=== PATIENT | female | born 1990 | race Caucasian/White ===

== ENCOUNTER → 2017-05-05 | Outpatient (CLI) | payer BC ==
[~2017-05-05] MED LIST: ALBU90OI INH; BACITO TP; CETI10 PO; CRUTCH4 USE; CYCL10 PO; FEXO60 PO; SPIR25 PO
[2017-05-06 13:51] LABS: Source VAG/CERVIX
== END | disposition home or self-care (01) ==
LOC: LAB 12:02
PROVIDERS: Obstetrics & Gynecology
DX: Z01.419 Encounter for gynecological examination (general) (routine) without abnormal findings (principal)
CPT/HCPCS: G0123

== ENCOUNTER 2019-05-07 19:44 | Inpatient (IN) | payer BC ==
[~2019-05-07] VITALS: Ht 162.6 cm; Wt 115.0 kg
[2019-05-07 20:19] LABS: Source, Urine Clean Catch
[2019-05-07 20:23] LABS: Appearance, Urine Clear (Clear); BASOPHILS ABSOLUTE AUTO 0.02 K/mm3 (0.00-0.23); BASOPHILS PERCENT AUTO 0 % (0-2); Blood, Urine 4+ (Neg); Color, Urine Amber (P-Yellow); EOSINOPHILS ABSOLUTE AUTO 0.11 K/mm3 (0.00-0.68); EOSINOPHILS PERCENT AUTO 1 % (0-6); Glucose Qualitative, Urine Neg (Neg); Hematocrit 47.3 % (33.0-51.0); Hemoglobin 15.1 g/dL (11.5-16.0); IMMATURE GRAN ABSOLUTE AUTO 0.04 K/mm3 (0.00-0.10); IMMATURE GRAN PERCENT AUTO 0 % (0-1); Ketones, Urine 1+ (Neg); LYMPHOCYTES ABSOLUTE AUTO 1.75 K/mm3 (0.84-5.20); LYMPHOCYTES PERCENT AUTO 17 % (21-46); Leukocyte Esterase, Urine 1+ (Neg); MONOCYTES ABSOLUTE AUTO 0.93 K/mm3 (0.16-1.47); MONOCYTES PERCENT AUTO 9 % (4-13); Mean Corpuscular HGB 28.8 pg (26.0-34.0); Mean Corpuscular HGB Conc 31.9 g/dL (31.5-36.5); Mean Corpuscular Volume 90 fL (80-100); Mean Platelet Volume 9.3 fL (9.1-12.4); NEUTROPHILS ABSOLUTE AUTO 7.69 K/mm3 (1.96-9.15); NEUTROPHILS PERCENT AUTO 73 % (41-73); Nitrite, Urine Neg (Neg); Platelet Count 320 K/mm3 (150-400); Protein, Urine 2+ (Neg); RDW Standard Deviation 43.5 fL (35.1-46.3); Red Blood Cell Count 5.24 M/mm3 (3.80-5.20); Urobilinogen, Urine 2+ (Normal); White Blood Cell Count 10.54 K/mm3 (4.00-11.30)
[2019-05-07 20:24] LABS: Bilirubin, Urine 3+ (Neg)
[2019-05-07 20:29] LABS: Red Blood Cells, Urine 0-2 /hpf (0-2)
[2019-05-07 20:30] LABS: Amorphous Light (0-Heavy); Bacteria Many /hpf; Mucus Light (0-Heavy); Squamous Epithelial Cells Mod /hpf (Few)
[2019-05-07 20:41] LABS: Alanine Aminotransfer (ALT/SGP 800 U/L (12-78); Albumin, Blood 3.7 g/dL (3.4-5.0); Albumin/Globulin Ratio 0.8 (0.8-1.8); Alk Phos 139 U/L (50-136); Anion Gap 4 mmol/L (6-16); Aspartate Aminotrans (AST/SGOT 466 U/L (12-37); Blood Urea Nitrogen 8 mg/dL (8-24); Bun/Creatinine Ratio 14.6 (12.0-20.0); CO2, Blood 26 mmol/L (21-32); Calcium, Blood 9.3 mg/dL (8.5-10.1); Chloride, Blood 107 mmol/L (98-108); Creatinine, Blood 0.55 mg/dL (0.40-1.00); Globulin, Blood 4.5 g/dL (2.2-4.0); Glomerular Filtration Rate >60 (60-); Glucose, Blood 97 mg/dL (70-99); Potassium, Blood 3.2 mmol/L (3.5-5.5); Sodium, Blood 137 mmol/L (136-145); Total Protein, Blood 8.2 g/dL (6.4-8.2)
[2019-05-08] MEDS ORDERED: SERT25 (01:08)
--- NOTE | 2019-05-08 03:24 | NUR ---
SUMMARY PT ARRIVED TO FLOOR IN DISCOMFORT. PT MEDICATED PER ORDERS WITH PT BECOMING COMFORTABLE. PT DENIED ANY N/V. PT HAD NO OTHER COMPLAINTS. PT CURRENTLY SLEEPING AND BREATHING EASY. PT STAYED THE NIGHT. CALL LIGHT IN REACH.
[2019-05-08 06:09] LABS: Anion Gap 5 mmol/L (6-16); Blood Urea Nitrogen 5 mg/dL (8-24); Bun/Creatinine Ratio 10.9 (12.0-20.0); CO2, Blood 26 mmol/L (21-32); Chloride, Blood 111 mmol/L (98-108); Creatinine, Blood 0.46 mg/dL (0.40-1.00); Glomerular Filtration Rate >60 (60-); Glucose, Blood 92 mg/dL (70-99); Potassium, Blood 3.9 mmol/L (3.5-5.5); Sodium, Blood 142 mmol/L (136-145)
--- NOTE | 2019-05-08 08:52 | NUR ---
MRI: CALLED IMAGING TO GET ETA ON ORDERED MRI. PER IMAGING [employer] TEXTILE SUPERVISOR, NO ONE REPAIR ARMATURE WINDER. RELAYED THAT PT IS WAITING FOR MRI TO DETERMINE IF SHE WILL NEED TO BE TRANSFERRED TO ANOTHER FACILITY OR NOT. IMAGING [employer] TEXTILE SUPERVISOR TO CALL THIS RN BACK AFTER SPEAKING WITH HER CONSUMER LOAN OFFICER AT 0900.
--- NOTE | 2019-05-08 10:00 | NUR ---
PT TO MRI IN W/C
--- NOTE | 2019-05-08 15:17 | NUR ---
TRANSFER TO [facility] FOR ERCP: REPORT CALLED TO GIANNI AT [place] AT 1510. PT MEDICATED WITH 1 MG IV DILAUDID AT 1438 PRIOR TO TRANSPORT. FAMILY AT BEDSIDE AND AWARE OF PT'S TRANSFER AND ROOM ASSIGNMENT. ALL QUESTIONS ANSWERED. PT REPORTS NO DISCOMFORT AT TIME OF TRANSFER. LACTATED RINGERS SENT WITH PT WITHOUT PUMP PER EMS REQUEST. PT LEFT ROOM VIA STRETCHER AT 1514. BELONGINGS TAKEN HOME BY .
== END 2019-05-08 15:14 | disposition short-term general hospital (02) | DRG 439 ==
LOC: ER 19:44 → MEDS 05-08 00:10
PROVIDERS: Physician Assistant; ADMIT Internal Medicine
DX: K85.10 Biliary acute pancreatitis without necrosis or infection (principal); R65.10 Systemic inflammatory response syndrome (SIRS) of non-infectious origin without acute organ dysfunction; Z68.41 Body mass index [BMI] 40.0-44.9, adult; E66.01 Morbid (severe) obesity due to excess calories; F31.9 Bipolar disorder, unspecified; F32.9 Major depressive disorder, single episode, unspecified; R79.89 Other specified abnormal findings of blood chemistry
CPT/HCPCS: 36415; 74181; 76705; 80048; 80053; 81001; 83690; 84703; 85025; 87086; J0780; J1170; J2060; J2405; J3010; J3480; J7030; J7120